=== PATIENT | male | born 1955 | race Caucasian/White ===

== ENCOUNTER 2018-04-24 16:54 | Emergency (ER) | payer OTHER ==
[~2018-04-24] VITALS: Ht 172.7 cm; Wt 76.2 kg
[2018-04-24 17:02] VITALS: BP 129/73
[2018-04-24] MEDS ORDERED: NORCO 5-325 TA1 EACH PO (18:19)
[2018-04-24] MEDS ORDERED: VALACYCLOVIR1000 MG PO (18:19)
== END 2018-04-24 18:37 | disposition home or self-care (01) ==
LOC: ER 16:54
DX: B02.9 Zoster without complications (principal)